=== PATIENT | female | born 2000 | race Two or more races ===

== ENCOUNTER 2019-05-04 09:38 | Emergency (ER) | payer SELFPAY ==
[~2019-05-04] VITALS: Ht 167.6 cm; Wt 118.0 kg
[2019-05-04 10:04] VITALS: BP 139/78
[2019-05-04] MEDS ORDERED: ONDANSETRON 4MG ODT PO ONE (10:30)
[2019-05-04] MEDS ORDERED: HYDROCODONE/ACETAMINOPHEN 5/325MG TABLET PO ONE (10:30)
== END 2019-05-04 11:42 | disposition home or self-care (01) ==
LOC: ER 09:38
DX: S42.402A Unspecified fracture of lower end of left humerus, initial encounter for closed fracture (principal); S69.92XA Unspecified injury of left wrist, hand and finger(s), initial encounter; M25.422 Effusion, left elbow; V29.88XA Motorcycle rider (driver) (passenger) injured in other specified transport accidents, initial encounter; Y93.89 Activity, other specified; Y92.89 Other specified places as the place of occurrence of the external cause; Y99.8 Other external cause status
CPT/HCPCS: 29105; 73080; 73110; 81025; 99284; Q0162

== ENCOUNTER 2022-04-14 11:40 | Emergency (ER) | payer SELFPAY ==
[~2022-04-14] VITALS: Ht 175.3 cm; Wt 104.0 kg
[2022-04-14] MEDS ORDERED: ERYT1OIN6 RIGHTEYE (15:58)
[2022-04-14 16:19] VITALS: BP 112/75
== END 2022-04-14 16:20 | disposition home or self-care (01) ==
LOC: ER 11:40
DX: H00.012 Hordeolum externum right lower eyelid (principal)
CPT/HCPCS: 99283